=== PATIENT | male | born 1990 | race Caucasian/White ===

== ENCOUNTER 2019-06-10 07:00 | Emergency (ER) | payer OTHER ==
[~2019-06-10] VITALS: Ht 177.8 cm; Wt 98.9 kg
[~2019-06-10 07:00] MED LIST: CEPH500 PO
[2019-06-10 08:22] LABS: BASOPHILS ABSOLUTE AUTO 0.03 K/mm3 (0.00-0.23); BASOPHILS PERCENT AUTO 1 % (0-2); EOSINOPHILS ABSOLUTE AUTO 0.07 K/mm3 (0.00-0.68); EOSINOPHILS PERCENT AUTO 1 % (0-6); Hematocrit 51.8 % (37.0-53.0); Hemoglobin 17.8 g/dL (13.5-17.5); IMMATURE GRAN ABSOLUTE AUTO 0.02 K/mm3 (0.00-0.10); IMMATURE GRAN PERCENT AUTO 0 % (0-1); LYMPHOCYTES PERCENT AUTO 26 % (21-46); MONOCYTES ABSOLUTE AUTO 0.38 K/mm3 (0.16-1.47); MONOCYTES PERCENT AUTO 7 % (4-13); Mean Corpuscular HGB 31.3 pg (26.0-34.0); Mean Corpuscular HGB Conc 34.4 g/dL (31.5-36.5); Mean Corpuscular Volume 91 fL (80-100); Mean Platelet Volume 10.9 fL (9.1-12.4); NEUTROPHILS ABSOLUTE AUTO 3.43 K/mm3 (1.96-9.15); NEUTROPHILS PERCENT AUTO 64 % (41-73); Platelet Count 196 K/mm3 (150-400); RDW Coefficient Variation 12.7 % (11.7-14.2); RDW Standard Deviation 41.6 fL (35.1-46.3); Red Blood Cell Count 5.68 M/mm3 (4.30-5.90); White Blood Cell Count 5.33 K/mm3 (4.00-11.30)
[2019-06-10 08:48] LABS: Alanine Aminotransfer (ALT/SGP 52 U/L (12-78); Albumin, Blood 3.9 g/dL (3.4-5.0); Albumin/Globulin Ratio 1.1 (0.8-1.8); Alk Phos 70 U/L (50-136); Anion Gap 6 mmol/L (6-16); Aspartate Aminotrans (AST/SGOT 20 U/L (12-37); Bilirubin, Total 0.2 mg/dL (0.1-1.0); Blood Urea Nitrogen 13 mg/dL (8-24); Bun/Creatinine Ratio 14.9 (12.0-20.0); CO2, Blood 24 mmol/L (21-32); Calcium, Blood 9.2 mg/dL (8.5-10.1); Chloride, Blood 109 mmol/L (98-108); Creatinine, Blood 0.87 mg/dL (0.60-1.20); Globulin, Blood 3.7 g/dL (2.2-4.0); Glomerular Filtration Rate >60 (60-); Glucose, Blood 112 mg/dL (70-99); Potassium, Blood 3.6 mmol/L (3.5-5.5); Sodium, Blood 139 mmol/L (136-145); Total Protein, Blood 7.6 g/dL (6.4-8.2); Troponin I <0.015 ng/mL (0.000-0.040)
[2019-06-10 10:14] LABS: U Amphetamine Screen Not Detected; U Barbituate Screen Not Detected; U Benzodiazapine Screen Not Detected; U Buprenorphine Screen Not Detected; U Cannabinoids Screen Not Detected; U Cocaine Screen Not Detected; U Methadone Screen Not Detected; U Methamphetamine Screen Not Detected; U Opiates Screen Not Detected; U Oxycodone Screen Not Detected; U Phencyclidine Screen Not Detected; U Propoxyphene Screen Not Detected
== END 2019-06-10 11:25 | disposition home or self-care (01) ==
LOC: ER 07:00
PROVIDERS: Emergency Medicine
DX: I47.1 Supraventricular tachycardia (principal); Z88.0 Allergy status to penicillin
CPT/HCPCS: 36415; 71045; 80053; 83735; 84443; 84484; 85025; 85379; 93005; 93010; 93225; 93226; 99285-25

== ENCOUNTER 2024-12-28 00:37 | Emergency (ER) | payer OTHER ==
[~2024-12-28] VITALS: Ht 177.8 cm; Wt 95.2 kg
[2024-12-28 01:00] VITALS: BP 143/112
[2024-12-28] MEDS ORDERED: NS 1,000 ML IV SCH (01:25)
[2024-12-28] MEDS ORDERED: LORazepam 2 MG/ML 1ML Injection IV ONE (01:25)
[2024-12-28 01:55] LABS: BASOPHILS ABSOLUTE AUTO 0.06 K/mm3 (0.00-0.23); BASOPHILS PERCENT AUTO 1 % (0-2); EOSINOPHILS ABSOLUTE AUTO 0.09 K/mm3 (0.00-0.68); EOSINOPHILS PERCENT AUTO 1 % (0-6); Hematocrit 49.1 % (37.0-53.0); Hemoglobin 17.6 g/dL (13.5-17.5); IMMATURE GRAN ABSOLUTE AUTO 0.04 K/mm3 (0.00-0.10); IMMATURE GRAN PERCENT AUTO 1 % (0-1); LYMPHOCYTES ABSOLUTE AUTO 1.67 K/mm3 (0.84-5.20); LYMPHOCYTES PERCENT AUTO 27 % (21-46); MONOCYTES ABSOLUTE AUTO 0.66 K/mm3 (0.16-1.47); MONOCYTES PERCENT AUTO 11 % (4-13); Mean Corpuscular HGB 33.4 pg (26.0-34.0); Mean Corpuscular HGB Conc 35.8 g/dL (31.5-36.5); Mean Corpuscular Volume 93 fL (80-100); NEUTROPHILS ABSOLUTE AUTO 3.69 K/mm3 (1.96-9.15); NEUTROPHILS PERCENT AUTO 60 % (41-73); Platelet Count 188 K/mm3 (150-400); RDW Coefficient Variation 11.9 % (11.7-14.2); RDW Standard Deviation 40.9 fL (35.1-46.3); Red Blood Cell Count 5.27 M/mm3 (4.30-5.90); White Blood Cell Count 6.21 K/mm3 (4.00-11.30)
[2024-12-28 01:57] LABS: Albumin, Blood 4.2 g/dL (3.4-5.0); Albumin/Globulin Ratio 1.2 (0.8-1.8); Bilirubin, Total 0.9 mg/dL (0.1-1.0); Bun/Creatinine Ratio 12.8 (12.0-20.0); Creatinine, Blood 0.93 mg/dL (0.60-1.20); Globulin, Blood 3.4 g/dL (2.2-4.0); Potassium, Blood 3.4 mmol/L (3.5-5.5); Total Protein, Blood 7.6 g/dL (6.4-8.2)
== END 2024-12-28 03:15 | disposition home or self-care (01) ==
LOC: ER 00:37
PROVIDERS: Emergency Medicine
DX: R07.89 Other chest pain (principal); R29.0 Tetany; R06.02 Shortness of breath; F17.200 Nicotine dependence, unspecified, uncomplicated; Z88.0 Allergy status to penicillin
CPT/HCPCS: 71046; 80053; 84484; 85025; 93005; 93010; 96374; 99285-25; J2060; J7030

== ENCOUNTER 2025-01-16 23:43 | Emergency (ER) | payer OTHER ==
[~2025-01-16] VITALS: Ht 177.8 cm; Wt 95.2 kg
[2025-01-16 23:47] VITALS: BP 145/98
== END 2025-01-17 01:09 | disposition left against medical advice (07) ==
LOC: ER 23:43
DX: R20.0 Anesthesia of skin (principal); Z53.21 Procedure and treatment not carried out due to patient leaving prior to being seen by health care provider

== ENCOUNTER 2025-05-23 19:25 | Inpatient (IN) | payer OTHER ==
[~2025-05-23] VITALS: Ht 177.8 cm; Wt 89.2 kg
[2025-05-23] MEDS ORDERED: Ondansetron HCl 2 MG / ML 2ML Vial IV ONE (19:40)
[2025-05-23] MEDS ORDERED: Folic Acid 1 MG TAB PO ONE (19:40)
[2025-05-23] MEDS ORDERED: NS 1,000 ML IV SCH (19:40)
[2025-05-23 19:52] LABS: BASOPHILS ABSOLUTE AUTO 0.05 K/mm3 (0.00-0.23); BASOPHILS PERCENT AUTO 1 % (0-2); EOSINOPHILS ABSOLUTE AUTO 0.02 K/mm3 (0.00-0.68); EOSINOPHILS PERCENT AUTO 0 % (0-6); Hematocrit 49.8 % (37.0-53.0); Hemoglobin 17.8 g/dL (13.5-17.5); IMMATURE GRAN ABSOLUTE AUTO 0.01 K/mm3 (0.00-0.10); IMMATURE GRAN PERCENT AUTO 0 % (0-1); LYMPHOCYTES ABSOLUTE AUTO 1.87 K/mm3 (0.84-5.20); LYMPHOCYTES PERCENT AUTO 32 % (21-46); MONOCYTES ABSOLUTE AUTO 0.63 K/mm3 (0.16-1.47); MONOCYTES PERCENT AUTO 11 % (4-13); Mean Corpuscular HGB Conc 35.7 g/dL (31.5-36.5); Mean Corpuscular Volume 90 fL (80-100); NEUTROPHILS ABSOLUTE AUTO 3.35 K/mm3 (1.96-9.15); NEUTROPHILS PERCENT AUTO 57 % (41-73); NRBC ABSOLUTE 0.00 K/mm3 (0.00-0.02); NRBC Auto 0.0 /100 WBC (0.0-0.2); Platelet Count 121 K/mm3 (150-400); RDW Coefficient Variation 13.2 % (11.7-14.2); RDW Standard Deviation 43.2 fL (35.1-46.3)
[2025-05-23 20:13] LABS: Alanine Aminotransfer (ALT/SGP 266.0 U/L (12-78); Albumin, Blood 4.5 g/dL (3.4-5.0); Albumin/Globulin Ratio 1.2 (0.8-1.8); Anion Gap 17.0 mmol/L (3-11); Aspartate Aminotrans (AST/SGOT 231.0 U/L (12-37); Bilirubin, Total 1.3 mg/dL (0.1-1.0); Blood Urea Nitrogen 9.0 mg/dL (8-24); CO2, Blood 21.0 mmol/L (21-32); Calcium, Blood 9.2 mg/dL (8.5-10.1); Chloride, Blood 101.0 mmol/L (98-108); Creatinine, Blood 0.61 mg/dL (0.60-1.20); Ethanol (Alcohol), Blood, Med 206.0 mg/dL; Globulin, Blood 3.7 g/dL (2.2-4.0); Glucose, Blood 99.0 mg/dL (70-99); Magnesium, Blood 2.0 mg/dL (1.6-2.4); Phosphorus, Blood 1.3 mg/dL (2.5-4.9); Potassium, Blood 3.0 mmol/L (3.5-5.5); Sodium, Blood 136.0 mmol/L (136-145); Total Protein, Blood 8.2 g/dL (6.4-8.2)
[2025-05-23] MEDS ORDERED: Potassium Acetate 20 MEQ in NS 100 ML IV ONE (20:25)
[2025-05-23] MEDS ORDERED: Potassium Phosphate Dibasic 25 MM in Dextrose 5% 500 ML IV ONE (20:25)
[2025-05-23] MEDS ORDERED: Mag Sulfate 1 GM/D5% 100ML 100 ML IV ONE (20:25)
[2025-05-23] MEDS ORDERED: Potassium Phosphate Dibasic 30 MM in Dextrose 5% 500 ML IV STA (20:28)
[2025-05-23 22:13] LABS: U Amphetamine Screen Not Detected; U Barbituate Screen DETECTED; U Benzodiazapine Screen Not Detected; U Buprenorphine Screen Not Detected; U Cannabinoids Screen Not Detected; U Cocaine Screen Not Detected; U Methadone Screen Not Detected; U Methamphetamine Screen Not Detected; U Opiates Screen Not Detected; U Oxycodone Screen Not Detected; U Phencyclidine Screen Not Detected
[2025-05-23] MEDS ORDERED: Ondansetron HCl 2 MG / ML 2ML Vial IV PRN (22:45)
[2025-05-23] MEDS ORDERED: LORazepam 2 MG/ML 1ML Injection IV PRN (22:45)
[2025-05-23] MEDS ORDERED: NS 1,000 ML IV ONE (22:45)
[2025-05-23] MEDS ORDERED: Enoxaparin 40 MG/0.4 ML SYR SC SCH (23:00)
[2025-05-24] MEDS ORDERED: Potassium Phosphate Dibasic 15 MM in Dextrose 5% 250 ML IV SCH (02:00)
[2025-05-24 04:05] VITALS: BP 147/88
[2025-05-24 04:42] LABS: BASOPHILS ABSOLUTE AUTO 0.02 K/mm3 (0.00-0.23); BASOPHILS PERCENT AUTO 1 % (0-2); EOSINOPHILS ABSOLUTE AUTO 0.01 K/mm3 (0.00-0.68); EOSINOPHILS PERCENT AUTO 0 % (0-6); Hematocrit 40.4 % (37.0-53.0); Hemoglobin 14.5 g/dL (13.5-17.5); IMMATURE GRAN ABSOLUTE AUTO 0.00 K/mm3 (0.00-0.10); IMMATURE GRAN PERCENT AUTO 0 % (0-1); LYMPHOCYTES ABSOLUTE AUTO 0.65 K/mm3 (0.84-5.20); LYMPHOCYTES PERCENT AUTO 23 % (21-46); MONOCYTES ABSOLUTE AUTO 0.37 K/mm3 (0.16-1.47); MONOCYTES PERCENT AUTO 13 % (4-13); Mean Corpuscular HGB Conc 35.9 g/dL (31.5-36.5); Mean Corpuscular Volume 91 fL (80-100); NEUTROPHILS ABSOLUTE AUTO 1.78 K/mm3 (1.96-9.15); NEUTROPHILS PERCENT AUTO 63 % (41-73); NRBC ABSOLUTE 0.00 K/mm3 (0.00-0.02); NRBC Auto 0.0 /100 WBC (0.0-0.2); Platelet Count 64 K/mm3 (150-400); RDW Coefficient Variation 13.3 % (11.7-14.2); RDW Standard Deviation 44.8 fL (35.1-46.3)
[2025-05-24 05:12] LABS: Alanine Aminotransfer (ALT/SGP 202.0 U/L (12-78); Albumin, Blood 3.3 g/dL (3.4-5.0); Albumin/Globulin Ratio 1.1 (0.8-1.8); Anion Gap 11.0 mmol/L (3-11); Aspartate Aminotrans (AST/SGOT 156.0 U/L (12-37); Bilirubin, Total 1.0 mg/dL (0.1-1.0); Blood Urea Nitrogen 5.0 mg/dL (8-24); CO2, Blood 24.0 mmol/L (21-32); Calcium, Blood 7.4 mg/dL (8.5-10.1); Chloride, Blood 102.0 mmol/L (98-108); Creatinine, Blood 0.56 mg/dL (0.60-1.20); Globulin, Blood 3.1 g/dL (2.2-4.0); Glucose, Blood 73.0 mg/dL (70-99); Potassium, Blood 3.3 mmol/L (3.5-5.5); Sodium, Blood 134.0 mmol/L (136-145); Total Protein, Blood 6.4 g/dL (6.4-8.2)
--- NOTE | 2025-05-24 05:30 | NUR ---
SHIFT SUMMARY PT ALERT AND ORIENTED X 4. ARRIVED FROM ED. PSORIASIS/REDDENED AREA NOTED TO GROIN. PT WITH CIWA SCORE 11-PRN ATIVAN GIVEN FOR WITHDRAWAL SYMPTOMS. PT WITH BED ALARM ON. DENIES PAIN. VSS. ABLE TO MAKE NEEDS KNOWN.
[2025-05-24 08:46] VITALS: BP 119/71
[2025-05-24 11:33] VITALS: BP 134/90
[2025-05-24 15:26] VITALS: BP 139/81
--- NOTE | 2025-05-24 16:55 | NUR ---
SHIFT SUMMARY: PT SLEEPS OFTEN, WAKES EASY TO VERBAL, Ox4, COOPERATIVE W/CARE. PER PT, LAST DRINK WAS 05/23/25 IN THE AM. CIWAs SCORED Q4H AND PRN, PT MEDICATED PER EMAR. PT IS OPEN TO TREATMENT AT [facility] ONCE DC'd, IMAGING SERVICES DIRECTOR F/[facility] TO BEDSIDE THIS AFTERNOON TO DISCUSS F/UP OPTIONS. PT DENIES SOB, O2 SATS MAINTAINED >93% ON RA. PT DENIES CP, SR ON MONITOR, RATE 60s-70s. PT HAS BEEN SBA WHEN OOB, SHOWERED TODAY. PT's PARENTS TO/FROM BEDSIDE T/OUT THE DAY, UPDATED AT BEDSIDE. PT CURRENTLY RESTING QUIETLY IN BED, AWAITING ABD US. CALL LIGHT IN REACH.
[2025-05-24 19:44] VITALS: BP 151/85
[2025-05-24] MEDS ORDERED: Oxymetazoline 0.05% Nasal Relief Spray 15mL BTL SCH (21:00)
[2025-05-24 23:19] VITALS: BP 126/84
--- NOTE | 2025-05-25 00:59 | NUR ---
PT DESATING TO 86% ON 15L OXYMIZER MASK. EDUCATED PATIENT TO TAKE DEEP BREATHS AND COUGH BUT NO IMPROVEMENT IN OXYGEN. MEREDITH RT NOTIFIED. RT TO ASSESS PATIENT. MD NANCY MADE AWARE. POTENTIALY WILL PLACE ON AIRVO OR BIPAP DEPENDING ON RESPIRATORY ASSESSMENT.
[2025-05-25 03:13] VITALS: BP 119/78
--- NOTE | 2025-05-25 04:20 | NUR ---
SHIFT SUMMARY NO ACUTE EVENTS OVERNIGHT. LIBRIUM GIVEN X 1 FOR CIWA SCORE. SYMPTOMS WELL CONTROLLED. PT REMAINS ALERT AND ORIENTED X 4. EDUCATED TO CALL BEFORE GETTING UP TO USE THE BATHROOM. BED ALARM ON. PT COOPERATIVE WITH CARE. CALL LYNN WITHIN REACH AND ABLE TO MAKE NEEDS KNOWN.
[2025-05-25 06:10] LABS: BASOPHILS ABSOLUTE AUTO 0.01 K/mm3 (0.00-0.23); BASOPHILS PERCENT AUTO 0 % (0-2); EOSINOPHILS ABSOLUTE AUTO 0.04 K/mm3 (0.00-0.68); EOSINOPHILS PERCENT AUTO 2 % (0-6); Hematocrit 42.6 % (37.0-53.0); Hemoglobin 14.9 g/dL (13.5-17.5); IMMATURE GRAN ABSOLUTE AUTO 0.01 K/mm3 (0.00-0.10); IMMATURE GRAN PERCENT AUTO 0 % (0-1); LYMPHOCYTES ABSOLUTE AUTO 0.52 K/mm3 (0.84-5.20); LYMPHOCYTES PERCENT AUTO 23 % (21-46); MONOCYTES ABSOLUTE AUTO 0.26 K/mm3 (0.16-1.47); MONOCYTES PERCENT AUTO 12 % (4-13); Mean Corpuscular HGB Conc 35.0 g/dL (31.5-36.5); Mean Corpuscular Volume 92 fL (80-100); NEUTROPHILS ABSOLUTE AUTO 1.42 K/mm3 (1.96-9.15); NEUTROPHILS PERCENT AUTO 63 % (41-73); NRBC ABSOLUTE 0.00 K/mm3 (0.00-0.02); NRBC Auto 0.0 /100 WBC (0.0-0.2); Platelet Count 60 K/mm3 (150-400); RDW Coefficient Variation 13.4 % (11.7-14.2); RDW Standard Deviation 45.4 fL (35.1-46.3)
[2025-05-25 06:29] LABS: Magnesium, Blood 2.1 mg/dL (1.6-2.4)
[2025-05-25 06:40] LABS: Alanine Aminotransfer (ALT/SGP 200.0 U/L (12-78); Albumin, Blood 3.3 g/dL (3.4-5.0); Albumin/Globulin Ratio 1.1 (0.8-1.8); Anion Gap 1.0 mmol/L (3-11); Aspartate Aminotrans (AST/SGOT 169.0 U/L (12-37); Bilirubin, Total 1.0 mg/dL (0.1-1.0); Blood Urea Nitrogen 6.0 mg/dL (8-24); CO2, Blood 26.0 mmol/L (21-32); Calcium, Blood 8.2 mg/dL (8.5-10.1); Chloride, Blood 106.0 mmol/L (98-108); Creatinine, Blood 0.51 mg/dL (0.60-1.20); Globulin, Blood 3.0 g/dL (2.2-4.0); Glucose, Blood 105.0 mg/dL (70-99); Phosphorus, Blood 2.7 mg/dL (2.5-4.9); Potassium, Blood 3.2 mmol/L (3.5-5.5); Sodium, Blood 130.0 mmol/L (136-145); Total Protein, Blood 6.3 g/dL (6.4-8.2)
[2025-05-25 08:25] VITALS: BP 130/84
[2025-05-25] MEDS ORDERED: Multivitamins 1 Tab PO SCH (09:00)
[2025-05-25 12:37] VITALS: BP 136/84
[2025-05-25 17:00] VITALS: BP 130/90
--- NOTE | 2025-05-25 17:01 | NUR ---
SHIFT SUMMARY: PT A&OX4. FOLLOWS COMMANDS AND MAKES NEEDS KNOWN TO STAFF. PT SLEPT MOST OF THE MORNING, OTHERWISE WATCHED TV MOST OF DAY. MOTHER CAME TO VISIT WITH PT THIS AM AND EVENING. PT WENT FOR A WALK AROUND THE UNIT AND STATED THAT HE JUST FELT WEAK. GOT UP TO THE BATHROOM WITH SBA FOR FALL PERCAUTIONS. PT DID NOT HAVE ANY COMPLAINTS OF CP, PRESSURE, TIGHTNESS OR SOB THIS SHIFT. CIWA REMIANED AT 1 (DUE TO ANXIETY) DURING SHIFT. RECIEVED A DOSE OF LIBRIUM. NO SIGNIFICANT EVENTS HAPPEND DURING THIS SHIFT. WILL CONTINUE TO CARE FOR PT TILL END OF SHIFT.
[2025-05-25 19:45] VITALS: BP 145/79
[2025-05-25 23:23] VITALS: BP 139/88
--- NOTE | 2025-05-25 23:29 | NUR ---
TRANSFER NOTE PT A&OX4, VSS. CIWA 2. ABLE TO MAKE NEEDS KNOWN. C/O OF ANXIETY. URINAL TO VOID. DENIES PAIN. SALINE LOCKED. REPORT GIVEN TO MEDICAL FLOOR RN. PT TRANSFERED W/ ALL PERSONAL BELONGINGS TO ROOM 343.
[2025-05-26 04:33] VITALS: BP 112/64
--- NOTE | 2025-05-26 06:15 | NUR ---
SUMMARY: PT ARRIVED TO UNIT TRANSFER FROM PCU. PT AOX4, SBA, RA. PT COOPERATIVE. CIWA SCORES HAVE BEEN BELOW 2. PT SLEPT MAJORITY OF NIGHT, NO COMPLAINTS, NO ACUTE EVENTS. POSSIBLE DISCHARGE TODAY.
[2025-05-26 07:36] VITALS: BP 131/86
[2025-05-26] MEDS ORDERED: B-1100 M1 PO (15:20)
[2025-05-26] MEDS ORDERED: MULVITA PO (15:20)
--- NOTE | 2025-05-26 15:30 | NUR ---
PATIENT DC'D TO HOME WITH FAMILY. DC INSTRUCTIONS AND EDUCATION DISCUSSED WITH PATIENT AND COPY PROVIDED. RX MEDICATIONS FAXED TO [facility]. PATIENT DENIES ANY FURTHER QUESTIONS OR CONCERNS.
== END 2025-05-26 15:34 | disposition home or self-care (01) | DRG 897 ==
LOC: ER 19:25 → PCU 05-24 03:25 → MEDS 05-25 23:15
PROVIDERS: Emergency Medicine; Student in an Organized Health Care Education/Training Program; ADMIT Internal Medicine
DX: F10.130 Alcohol abuse with withdrawal, uncomplicated (principal); E87.6 Hypokalemia; E83.39 Other disorders of phosphorus metabolism; D69.6 Thrombocytopenia, unspecified; R94.31 Abnormal electrocardiogram [ECG] [EKG]; R74.01 Elevation of levels of liver transaminase levels; D72.819 Decreased white blood cell count, unspecified; F17.210 Nicotine dependence, cigarettes, uncomplicated; F15.10 Other stimulant abuse, uncomplicated; Z88.0 Allergy status to penicillin; Z79.899 Other long term (current) drug therapy
CPT/HCPCS: 36415; 76705; 80053; 80320; 82947; 83735; 83880; 84100; 85025; 93005; 93010; 96365; 96375; 96376; 99285-25; A9270; J1650; J2060; J2405; J2560; J3411; J3475; J7030; J7060

== ENCOUNTER 2025-07-16 23:17 | Emergency (ER) | payer OTHER ==
[~2025-07-16] VITALS: Ht 177.8 cm; Wt 83.9 kg
[~2025-07-16 23:17] MED LIST changes: +B-1100 M1 PO; +MULVITA PO
[2025-07-16] MEDS ORDERED: LORazepam 2 MG/ML 1ML Injection IV ONE (23:50)
[2025-07-17 00:14] LABS: BASOPHILS ABSOLUTE AUTO 0.06 K/mm3 (0.00-0.23); BASOPHILS PERCENT AUTO 1 % (0-2); EOSINOPHILS ABSOLUTE AUTO 0.00 K/mm3 (0.00-0.68); EOSINOPHILS PERCENT AUTO 0 % (0-6); Hematocrit 46.2 % (37.0-53.0); Hemoglobin 16.2 g/dL (13.5-17.5); IMMATURE GRAN ABSOLUTE AUTO 0.02 K/mm3 (0.00-0.10); IMMATURE GRAN PERCENT AUTO 0 % (0-1); LYMPHOCYTES ABSOLUTE AUTO 0.84 K/mm3 (0.84-5.20); LYMPHOCYTES PERCENT AUTO 11 % (21-46); MONOCYTES ABSOLUTE AUTO 0.68 K/mm3 (0.16-1.47); MONOCYTES PERCENT AUTO 9 % (4-13); Mean Corpuscular HGB Conc 35.1 g/dL (31.5-36.5); Mean Corpuscular Volume 94 fL (80-100); NEUTROPHILS ABSOLUTE AUTO 5.93 K/mm3 (1.96-9.15); NEUTROPHILS PERCENT AUTO 79 % (41-73); NRBC ABSOLUTE 0.00 K/mm3 (0.00-0.02); NRBC Auto 0.0 /100 WBC (0.0-0.2); Platelet Count 150 K/mm3 (150-400); RDW Coefficient Variation 12.0 % (11.7-14.2); RDW Standard Deviation 41.8 fL (35.1-46.3)
[2025-07-17 00:29] LABS: Alanine Aminotransfer (ALT/SGP 225 U/L (12-78); Albumin, Blood 4.4 g/dL (3.4-5.0); Albumin/Globulin Ratio 1.5 (0.8-1.8); Anion Gap 13 mmol/L (3-11); Aspartate Aminotrans (AST/SGOT 99 U/L (12-37); Bilirubin, Total 1.3 mg/dL (0.1-1.0); Blood Urea Nitrogen 10 mg/dL (8-24); CO2, Blood 24 mmol/L (21-32); Calcium, Blood 9.5 mg/dL (8.5-10.1); Chloride, Blood 99 mmol/L (98-108); Creatinine, Blood 0.59 mg/dL (0.60-1.20); Ethanol (Alcohol), Blood, Med <3 mg/dL; Globulin, Blood 3.0 g/dL (2.2-4.0); Glucose, Blood 126 mg/dL (70-99); Potassium, Blood 3.3 mmol/L (3.5-5.5); Sodium, Blood 133 mmol/L (136-145); Total Protein, Blood 7.4 g/dL (6.4-8.2)
[2025-07-17] MEDS ORDERED: Ketorolac Tromethamine 15mg Vial IV ONE (01:10)
[2025-07-17] MEDS ORDERED: NS 1,000 ML IV SCH (01:10)
[2025-07-17 01:45] VITALS: BP 138/89
[2025-07-17] MEDS ORDERED: CHLO25 PO (01:53)
== END 2025-07-17 02:05 | disposition home or self-care (01) ==
LOC: ER 23:17
PROVIDERS: Student in an Organized Health Care Education/Training Program
DX: F10.939 Alcohol use, unspecified with withdrawal, unspecified (principal); R74.01 Elevation of levels of liver transaminase levels; F17.200 Nicotine dependence, unspecified, uncomplicated; Z88.0 Allergy status to penicillin
CPT/HCPCS: 80053; 80320; 85025; 93005; 93010; 96361; 96374; 96375; 99285-25; A9270; J1885; J2060; J7030

== ENCOUNTER 2025-09-03 16:49 | Emergency (ER) | payer OTHER ==
[~2025-09-03] VITALS: Ht 177.8 cm; Wt 83.9 kg
[~2025-09-03 16:49] MED LIST changes: +CHLO25 PO
[2025-09-03] MEDS ORDERED: HYDROcodone 5-APAP 325 TAB PO ONE (18:20)
[2025-09-03] MEDS ORDERED: Norco 5-325 Ta1 EACH PO (18:30)
[2025-09-03] MEDS ORDERED: Lidocaine 4% 1 Patch TOP ONE (18:35)
[2025-09-03 19:00] VITALS: BP 130/72
== END 2025-09-03 19:10 | disposition home or self-care (01) ==
LOC: ER 16:49
DX: M51.26 Other intervertebral disc displacement, lumbar region (principal); Z88.0 Allergy status to penicillin
CPT/HCPCS: 99284; A9270

== ENCOUNTER → 2025-09-17 | Outpatient (CLI) | payer OTHER ==
[~2025-09-17] MED LIST changes: +Norco 5-325 Ta1 EACH PO
[2025-09-21 15:59] LABS: HEPATITIS A ANTIBODY, IGM Negative (Negative); HEPATITIS C AB CIA INTERP Negative (Negative); HEPATITIS C ANTIBODY CIA INDEX 0.05 IV
== END ==
LOC: LAB 12:24 → LAB SHORT 12:24
PROVIDERS: Student in an Organized Health Care Education/Training Program
DX: R74.01 Elevation of levels of liver transaminase levels (principal)
CPT/HCPCS: 80074; 82977